=== PATIENT | male | born 1995 | race Caucasian/White ===

== ENCOUNTER 2024-07-26 16:12 | Emergency (ER) | payer OTHER, SELFPAY ==
--- NOTE | 2024-07-26 16:15 | ED_ITS ---
HPI - Ear Problem General Chief complaint: Ear Stated complaint: Lt Ear Clogged Time Seen by Provider: 07/26/24 16:15 Source: patient Mode of arrival: ambulatory Limitations: no limitations History of Present Illness HPI Narrative: Veto is a 28-year-old male patient presenting to the clinic today with complaints of left ear fullness/clogged. He reports Related Data Allergies Allergy/AdvReac Type Severity Reaction Status Date / Time No Known Allergies Allergy Verified 07/26/24 16:14 Review of Systems Review of Systems: Pertinent positives per HPI. Patient denies any fever, chills, rash, headache, visual changes, dizziness, cough, shortness of breath, chest pain, palpitations, nausea, vomiting, diarrhea, constipation, abdominal pain, or any urinary issues. PMFSH Comments At the time of my signature, I reviewed and agree with the nursing past medical, surgical, social, and family history. There is no relevant family history pertinent to the patient complaint. Exam Narrative: General: Well-developed, well nourished, in no apparent distress Head: Normocephalic, atraumatic Eyes: Pupils equally round and reactive to light bilaterally, EOM intact, sclera and conjunctive clear, no discharge, lids normal Ears: Cerumen impaction to the left ear canal, ear irrigation was performed, TMs intact and clear, left ear canal excoriated, right ear canal clear, no drainage, grossly hearing normal. Nose: Nares patent, no discharge, no inflammation, no sinus tenderness. Mouth: Oral pharynx without lesions or masses, good dentition, MMM. Neck: Supple, trachea midline, no enlargement of anterior or posterior cervical nodes, no thyroid masses or goiter palpable. Cardio: Regular rate and rhythm, s1 and s2 normal, no murmur appreciated. Resp: Clear to auscultation bilaterally, no rhonchi, rales, wheezing or rubs Course Course Emergency Course: Portions of this record may have been created with voice recognition software. Level of Care: Express Care Visit Vital Signs Vital signs: Vital Signs Temperature 36.4 C L 07/26/24 16:21 Pulse Rate 73 07/26/24 16:21 Respiratory Rate 16 07/26/24 16:21 Blood Pressure 140/87 07/26/24 16:21 Pulse Oximetry 100 07/26/24 16:21 Oxygen Delivery Room Air 07/26/24 16:21 Temperature 36.4 C L 07/26/24 16:21 Pulse Rate 73 07/26/24 16:21 Respiratory Rate 16 07/26/24 16:21 Blood Pressure 140/87 07/26/24 16:21 Pulse Oximetry 100 07/26/24 16:21 Oxygen Delivery Room Air 07/26/24 16:21 Vital signs reviewed Procedures Ear Wax Removal Left Ear: Ear Wax Removal Date: 07/26/24 Results: Re-examined: cerumen removed completely TM Examination: TM(s) intact, normal appearance Ear Canal Exam: atraumatic Patient Tolerated Procedure: well and no complications Complications: no problems Additional Comments: Verbal consent obtained for ear irrigation. Risk and benefits explained and patient voiced understanding. Ear irrigation performed using an elephant ear and spray water bottle. Mixture of 1/2 peroxide 1/2 water used to irrigate ear canal. Cerumen impaction cleared and TM visualized without redness. Left ear canal excoriated Grossly hearing normal. Patient tolerated procedure well Medical Decision Making MDM Narrative Medical decision making narrative: At the time of visit patient is resting comfortably on the exam table. Patient appears to be nontoxic. Procedures: Left ear irrigation was performed in the clinic using half warm water half peroxide. Procedure was performed successfully. Patient tolerated well. Left ear canal was excoriated. Plan: Patient had a left cerumen impaction with left external auditory canal excoriated. Prescription for ofloxacin drops was sent to the pharmacy. Supportive measures were discussed with the patient and they voiced understanding discharge instructions and agrees to treatment plan. Return precautions reviewed Differential Diagnosis Differential Diagnosis: Otitis media, otitis externa, eustachian tube dysfunction, cerumen impaction, upper respiratory infection, serous otitis Vital Signs Vital Signs: Vital Signs Temperature 36.4 C L 07/26/24 16:21 Pulse Rate 73 07/26/24 16:21 Respiratory Rate 16 07/26/24 16:21 Blood Pressure 140/87 07/26/24 16:21 Pulse Oximetry 100 07/26/24 16:21 Oxygen Delivery Room Air 07/26/24 16:21 Temperature 36.4 C L 07/26/24 16:21 Pulse Rate 73 07/26/24 16:21 Respiratory Rate 16 07/26/24 16:21 Blood Pressure 140/87 07/26/24 16:21 Pulse Oximetry 100 07/26/24 16:21 Oxygen Delivery Room Air 07/26/24 16:21 Discharge Plan Discharge Clinical Impression: Cerumen impaction Qualifiers: Laterality: left Qualified Code(s): H61.22 - Impacted cerumen, left ear Excoriation of left ear canal Qualifiers: Encounter type: initial encounter Qualified Code(s): S00.412A - Abrasion of left ear, initial encounter Patient Disposition: Home Condition: Stable Instructions: Antibiotic Form, Earache (ED) Additional Instructions: Ear irrigation was performed successfully in the clinic today Take any prescribed medications only as directed-ofloxacin Tylenol/motrin as needed for pain May use heating pad to alleviate pain. Follow-up with ENT doctor if symptoms persist Follow up with your PCP in 3-5 days if symptoms persist. Patient Language: Albanian Prescriptions: New ofloxacin 0.3 % drops 5 drp otic (ear) BID 7 Days Qty: 5 0RF Follow-up/Referrals: UNKNOWN,DOCTOR [Non-Staff] - Time of Disposition: 16:37 Quality NIHSS Nursing Documentation ED NIHSS nursing documentation: reviewed/agree
[2024-07-26 16:21] VITALS: BP 140/87; PULSE 73; RESP 16; TEMP 36.4; O2SAT 100
== END 2024-07-26 16:39 | disposition home or self-care (01) ==
PROVIDERS: Emergency Provider Nurse Practitioner Family
DX: H61.22 Impacted cerumen, left ear (principal); S00.412A Abrasion of left ear, initial encounter; X58.XXXA Exposure to other specified factors, initial encounter; Z86.16 Personal history of COVID-19
CPT/HCPCS: 69209; 99213; A9270; G0463